=== PATIENT | female | born 1955 | race Caucasian/White ===

== ENCOUNTER → 2024-04-07 | Outpatient (REF) | payer MEDICARE ==
[~2024-04-07] MED LIST: CHOLESTEROL; EFFEXOR; LISINOPRIL
== END ==
LOC: MAMMO 09:45
PROVIDERS: ATTEND Physician Assistant Medical
DX: Z12.31 Encounter for screening mammogram for malignant neoplasm of breast (principal)
CPT/HCPCS: 77067